=== PATIENT | male | born 1960 | race Caucasian/White ===

== ENCOUNTER 2016-06-03 08:45 | Inpatient (IN) | payer SELFPAY ==
[2016-06-03] MEDS ORDERED: SODIUM CHLORIDE 0.9% 10 ML FLUSH FLUSH PRN (09:08)
--- NOTE | 2016-06-03 09:18 | DIRPT ---
CLINICAL DATA: Altered mental status. EXAM: CT HEAD WITHOUT CONTRAST TECHNIQUE: Contiguous axial images were obtained from the base of the skull through the vertex without intravenous contrast. COMPARISON: None. FINDINGS: Bony calvarium appears intact. No mass effect or midline shift is noted. Ventricular size is within normal limits. There is no evidence of mass lesion, hemorrhage or acute infarction. IMPRESSION: Normal head CT. Electronically Signed By: Arthur Gerard Jr, M.D. On: 06/03/2016 09:15
[2016-06-03 09:19] LABS: AUTOMATED EOSINOPHIL 2.8 % (0-5); AUTOMATED LYMPH 23.2 % (17-44); AUTOMATED MONOCYTE 5.7 % (3-10); AUTOMATED NEUTROPHIL 67.3 % (45-76)
[2016-06-03] MEDS: NS 1,000 ML IV ONE ×2 (09:22→09:23)
[2016-06-03] MEDS ORDERED: ASPIRIN 300 MG SUPP PR ONE (09:24)
--- NOTE | 2016-06-03 09:28 | EDPRACDOC ---
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 EMS Treatment ALS IV Yes - General Information Chief Complaint: Generalized Weakness Stated Complaint: STROKE Time Seen by Provider: 06/03/16 08:48 Information Source: Patient Mode of Arrival:: Ambulance Home Medications: Home Medications No Home Medications 06/03/16 Allergies/Adverse Reactions: Allergies Allergy/AdvReac Type Severity Reaction Status Date / Time No Known Drug Allergies Allergy Unknown Verified 06/03/16 09:31 - History of Present Illness Exact Onset of Symptoms: Unknown Symptoms Started: Reports: Suddenly Symptoms: Reports: Other trouble talking Symptoms Description: Worsening Symptom Severity: Reports: Does not affect activitiy Associated signs and symptoms:: Reports: Headache HPI: PT'S SIGNIFICANT OTHER GIVES HX DUE TO PT'S DIFFICULTY WITH SPEECH. PT DEVELOPED A LEFT SIDED H/A LAST NIGHT. HE THEN DEVELOPED TROUBLE SPEAKING. PT CHECKED HIS BP AND IT WAS HIGH. PT HAS A HX OF HTN AND WAS SUPPOSED TO F/U WITH PCP, BUT NEVER DID. PT WENT TO SLEEP AND AWOKE THIS AM WITH WORSENING SPEECH. PT IS ABLE TO SWALLOW AND TO WALK. HE WAS ABLE TO GET DRESSED THIS AM. ED Past Medical History - Patient Medical History Neurological History: Reports: Other (TIA)Comment Only: Cerebrovascular Accident (TIA) Cardiac History: Reports: Hypertension Psychological History: Denies: Depression Surgical History: Reports: No Significant History - Social Medical History Smoking Status: Former smoker ETOH: None Substance Abuse: None Lives With: Significant Other Lives In: Home EDM Review of Systems - Review of Systems ROS Negative Except as Marked: Yes All systems reviewed and were negative except as marked Neurological: Headache, Speech Difficulty - Physical Exam Constitutional: Alert (Awake), No apparent distress Oriented to: Person Last recorded Vital Signs: Last Vital Signs Temp 98.6 F 06/03/16 09:00 Pulse 58 L 06/03/16 09:13 Resp 20 06/03/16 09:13 BP 181/96 H 06/03/16 09:13 Pulse Ox 100 06/03/16 09:13 Oxygen Pulse Oxygen Saturation 100 O2 Device Oxygen Flow Rate Fraction of Inspired Oxygen ( FIO2) - HEENT Head: Normal ( normocephalic) Eye Exam: Normal (PERRL, EOMI, Sclera white) Oropharynx: Normal (Pharynx:Moist without exudate,Gums-no swelling) ENT EAC: Normal TMJ: Normal Nose: No Symptoms Reported (septum midline) Neck: Normal (FROM, trachea at midline) - Respiratory/Cardiovascular Respiratory: Normal - CTA (BBS clear to auscultation without adventitious sounds ) Cardiovascular: Normal (RRR without murmur, gallop or rub) - GI Auscultation: Normal (NABS) Palpation: Normal (Soft,No rebound or guarding, non distended) Tenderness: Non tender Lombardo's Sign: Negative - Musculoskeletal Back: Normal (Non-Tender) Extremities: Normal (Normal tone, Pulses 2+ No cyanosis or edema, FROM) - Integumentary Skin: Normal, Warm, Dry Lymphatics: Normal (no adenopathy) - Neurologic Memory Impaired: Unable to Test Motor Function: Normal Cranial Nerve: Normal Cerebellar: Other ([place]ST[place]MUS) Mood Description: Normal Thought: Coherent Neurologic Comment: PT DISPLAYS WORD SALAD SPEECH AND APHASIA. PT IS ABLE TO ANSWER SOME QUESTIONS FLUENTLY LIKE HIS NAME, BUT SOME ANSWERS MOST QUESTIONS WITH NONSENSICAL WORDS. PT WILL FOLLOW COMMANDS. - Action Has patient received an Antithrombotic in the last 24hrs?: No Was an Antithrombotic given in the ED?: No Is patient a candidate for lytic therapy?: No Patient received TPA within 30 min of arrival?: No Reason IV Thrombolytics Contraindicated: Other *free text (TIME SINCE ONSET) - Results 06/03/16 09:05 06/03/16 09:05 WBC 8.0 xk/uL (3.8-10.8) 06/03/16 09:05 RBC 4.61 xM/uL (4.70-6.10) L 06/03/16 09:05 Hgb 14.7 g/dL (14.0-18.0) 06/03/16 09:05 Hct 42.2 % (42-52) 06/03/16 09:05 MCV 91 fL (80-94) 06/03/16 09:05 MCH 31.9 pg (27-32) 06/03/16 09:05 MCHC 34.9 g/dl (33-36) 06/03/16 09:05 RDW 12.6 % (11.5-14.5) 06/03/16 09:05 Plt Count 196 xk/uL (130-400) 06/03/16 09:05 MPV 8.0 fL (7.4-10.4) 06/03/16 09:05 Neut % (Auto) 67.3 % (45-76) 06/03/16 09:05 Lymph % (Auto) 23.2 % (17-44) 06/03/16 09:05 [place] % (Auto) 5.7 % (3-10) 06/03/16 09:05 Eos % (Auto) 2.8 % (0-5) 06/03/16 09:05 Baso % (Auto) 1.0 % (0-2) 06/03/16 09:05 Absolute Neuts (auto) 5.36 xk/uL (1.7-8.2) 06/03/16 09:05 Absolute Lymphs (auto) 1.84 xk/uL (0.65-4.75) 06/03/16 09:05 Lab Results 06/03/16 09:05 WBC 8.0 RBC 4.61 L Hgb 14.7 Hct 42.2 MCV 91 MCH 31.9 MCHC 34.9 RDW 12.6 Plt Count 196 MPV 8.0 Neut % (Auto) 67.3 Lymph % (Auto) 23.2 [place] % (Auto) 5.7 Eos % (Auto) 2.8 Baso % (Auto) 1.0 Absolute Neuts (auto) 5.36 Absolute Lymphs (auto) 1.84 - EKG EKG #1 EKG Time: 09:02 -: Yes EKG interpreted by me Rate: bpm: 57 [place]: Normal Rhythm: SB Block: None Hypertrophy: None ST: Normal - Diagnostic Imaging Head Image interpreted by: Radiologist Normal head CT. Chest Image interpreted by: Radiologist No active cardiopulmonary disease. - Departure Yes I personally saw and evaluated the patient. Disposition: Admit IP To This Hospital Condition: Fair Final Diagnosis: CVA (cerebral vascular accident) Instructions: Weakness (General) Education/Counseling Given To: Patient Education/Counseling Given Regarding: Diagnosis, Treatment Decision to Admit Time: 09:57 Decision to admit date: 06/03/16 Decision to admit: from ED - Physician Consulted Hospitalist Provider Called: Quang Gerard
[2016-06-03 09:38] LABS: BLOOD UREA NITROGEN 10 MG/DL (9-20); CALCIUM 9.1 MG/DL (8.4-10.2); CALCULATED OSMOLALITY 272 MOs/Kg (270-290); CHLORIDE 106 mEq/L (98-107); CPK TOTAL WITH POSSIBLE MB 124 IU/L (55-170); GLUCOSE 96 MG/DL (70-99); SODIUM LEVEL 142 mEq/L (137-146); TOTAL PROTEIN 7.1 G/DL (6.3-8.2)
--- NOTE | 2016-06-03 09:48 | DIRPT ---
CLINICAL DATA: Stroke EXAM: PORTABLE CHEST 1 VIEW COMPARISON: None. FINDINGS: Upper normal heart size. Lungs under aerated and grossly clear. No pneumothorax or pleural effusion. IMPRESSION: No active cardiopulmonary disease. Electronically Signed By: Alfredo Lomeli M.D. On: 06/03/2016 09:46
[2016-06-03 10:32] LABS: ALL NEG? NO; MDMA* NEG (NEGATIVE); METHAMPHETAMINES NEG (NEGATIVE); OXYCODONE NEG (NEGATIVE)
[2016-06-03 10:35] LABS: LEUKOCYTES/URINE NEG (NEGATIVE); NITRITE/URINE NEG (NEGATIVE); RBC/URINE 0-2 (0-2); URINE OCCULT BLOOD NEG (NEG/TRACE); WBC/URINE 0-2 (0-2)
[2016-06-03] MEDS ORDERED: GUAIFENESIN 200 MG/10 ML UDC PO PRN (10:55)
[2016-06-03] MEDS ORDERED: ONDANSETRON HCL 4 MG/2 ML VIAL IV PRN (10:55)
[2016-06-03] MEDS ORDERED: ACETAMINOPHEN 325 MG/TAB TABLET PO PRN (10:55)
[2016-06-03] MEDS ORDERED: MAGNESIUM HYDROXIDE 30 ML BOTTLE PO PRN (10:55)
[2016-06-03] MEDS ORDERED: ZOLPIDEM TARTRATE 5 MG TAB PO PRN (10:55)
[2016-06-03] MEDS ORDERED: Docusate Sodium 100 MG CAP PO PRN (10:55)
[2016-06-03] MEDS ORDERED: BENZONATATE 100 MG PERLES PO PRN (10:55)
--- NOTE | 2016-06-03 10:55 | HISTPHYS ---
- Chief Complaint stroke - History of Present Illness Mr. Parks is a 55-year-old white male who presents emergency room approximately 24 hours of slurred speech and word salad. Symptoms started yesterday afternoon and or significantly worse last evening. His family states that he would say words they were not together to form a coherent sentence. As symptoms persisted into this morning they elected to bring him to the emergency room for evaluation. Initial head CT and evaluation or negative. He still has difficulty with word finding but is speech is fluent in the majority of his interactions and statements are within normal limits. He says he was diagnosed with hypertension on a work trip to [place] approximately 4-5 months ago. He was supposed to follow up with a physician to manage blood pressure but he has yet to follow-up. He has a remote history of smoking and is an ex heavy alcohol user though he quit approximately 1 year ago. His symptoms are clearly consistent with acute stroke and he will be admitted to the hospital for further evaluation and management. He unfortunately is too far outside the clinical window to be a candidate for tPA. - Medical History Cardiac History: Reports: Hypertension Respiratory History: Reports: No Significant History GI/ History: Reports: No Significant History Musculoskeletal History: Reports: No Significant History Systemic History: Reports: No Significant History Neurological History: Reports: No Significant History, Other (TIA)Comment Only: Cerebrovascular Accident (TIA) Psychological History: Reports: No Significant History. Denies: Depression - Surgical History Reports: No Significant History - Medictions/Allergies Allergies No Known Drug Allergies Allergy (Verified 06/03/16 09:31) Unknown Current Medication List: Reviewed Home Medications No Home Medications 06/03/16 - Family History Reports: Hypertension - Social History Lives: Alone Smoking Status: Former smoker Social History: Reports: Alcohol Use (ex heavy alcohol use. quit 1 year ago) - Review of Systems Yes Review of systems cannot be obtained due to the patient's medical condition (Very limited due to stroke and speech difficulties with word-finding proble) - Physical Exam Constitutional: No apparent distress, Alert (Awake), Well nourished, Well appearing Oriented to: Person Exam: Last Vital Signs Temp 98.6 F 06/03/16 09:00 Pulse 58 L 06/03/16 10:19 Resp 20 06/03/16 10:19 BP 168/98 06/03/16 10:19 Pulse Ox 100 06/03/16 10:19 Intake & Output 06/02/16 06/03/16 06/03/16 23:59 07:59 15:59 Patient's weight 81.647 kg - HEENT Head: Normal ( normocephalic) Eye: Normal (PERRL, EOMI, Sclera white) Oropharynx: Normal (Pharynx:Moist without exudate,Gums-no swelling) ENT EAC: Normal TMJ: Normal Nose: No Symptoms Reported (septum midline) - Respiratory/Cardiovascular Respiratory: Normal - CTA (BBS clear to auscultation without adventitious sounds ) Cardiovascular: Normal - GI Auscultation: Normal (NABS) Palpation: Normal (Soft,No rebound or guarding, non distended) Tenderness: Non tender - Musculoskeletal Back: Normal (Non-Tender). negative: Abrasion Extremities: Normal (Normal tone, Pulses 2+ No cyanosis or edema, FROM), Femoral Pulse, Pedal Pulse. negative: Calf Tenderness, Edema, Pedal Edema - Integumentary Skin: Normal, Warm, Dry Lymphatics: Normal (no adenopathy). negative: Adenopathy - Neurologic Memory Impaired: Unable to Test Motor Function: Normal Cranial Nerve: Other (Speech fluent significant difficulties with word finding.) Mood Description: Normal Thought: Coherent Perception: Normal - Focused CV Perfusion Exam Vital Signs: Last Vital Signs Temp 98.6 F 06/03/16 09:00 Pulse 58 L 06/03/16 10:19 Resp 20 06/03/16 10:19 BP 168/98 06/03/16 10:19 Pulse Ox 100 06/03/16 10:19 - Lab Results Laboratory Results - last 24 hr 06/03/16 06/03/16 06/03/16 09:05 09:05 09:05 WBC 8.0 RBC 4.61 L Hgb 14.7 Hct 42.2 MCV 91 MCH 31.9 MCHC 34.9 RDW 12.6 Plt Count 196 MPV 8.0 Neut % (Auto) 67.3 Lymph % (Auto) 23.2 [place] % (Auto) 5.7 Eos % (Auto) 2.8 Baso % (Auto) 1.0 Absolute Neuts (auto) 5.36 Absolute Lymphs (auto) 1.84 APTT 25.7 Sodium 142 Potassium 4.1 Chloride 106 Carbon Dioxide 27 Anion Gap 13 BUN 10 Creatinine 0.70 Estimated GFR (MDRD) > 60 Glucose 96 Calculated Osmolality 272 Calcium 9.1 Total Bilirubin 0.8 AST 40 ALT 38 Alkaline Phosphatase 73 Creatine Kinase 124 Troponin I < 0.01 Total Protein 7.1 Albumin 4.2 Urine Color Urine Clarity Urine pH Ur Specific [place] Urine Protein Urine Glucose (UA) Urine Ketones Urine Occult Blood Urine Nitrite Urine Bilirubin Urine Urobilinogen Ur Leukocyte Esterase Urine RBC Urine WBC Urine Mucus Urine Opiates Screen Ur Oxycodone Screen Urine Methadone Screen Ur Barbiturates Screen Ur Tricyclics Screen Ur Phencyclidine Scrn Ur Amphetamines Screen U Methamphetamines Scrn Urine MDMA Screen U Benzodiazepines Scrn Urine Cocaine Screen Ur THC Screen 06/03/16 06/03/16 10:05 10:30 WBC RBC Hgb Hct MCV MCH MCHC RDW Plt Count MPV Neut % (Auto) Lymph % (Auto) [place] % (Auto) Eos % (Auto) Baso % (Auto) Absolute Neuts (auto) Absolute Lymphs (auto) APTT Sodium Potassium Chloride Carbon Dioxide Anion Gap BUN Creatinine Estimated GFR (MDRD) Glucose Calculated Osmolality Calcium Total Bilirubin AST ALT Alkaline Phosphatase Creatine Kinase Troponin I Total Protein Albumin Urine Color Yellow Urine Clarity Clear Urine pH 8.0 Ur Specific [place] 1.010 Urine Protein Neg Urine Glucose (UA) Neg Urine Ketones Neg Urine Occult Blood Neg Urine Nitrite Neg Urine Bilirubin Neg Urine Urobilinogen <2.0 Ur Leukocyte Esterase Neg Urine RBC 0-2 Urine WBC 0-2 Urine Mucus Occ Urine Opiates Screen Neg Ur Oxycodone Screen Neg Urine Methadone Screen Neg Ur Barbiturates Screen Neg Ur Tricyclics Screen Neg Ur Phencyclidine Scrn Neg Ur Amphetamines Screen Neg U Methamphetamines Scrn Neg Urine MDMA Screen Neg U Benzodiazepines Scrn Neg Urine Cocaine Screen Neg Ur THC Screen *positive* H - Assessment (1) CVA (cerebral vascular accident) I63.9 - CEREBRAL INFARCTION, UNSPECIFIED Acute Present on Admission: Yes Qualifiers: CVA mechanism: thrombosis Precerebral and cerebral artery: middle cerebral artery Laterality of affected vessel: left Qualified Code(s): I63.312 - Cerebral infarction due to thrombosis of left middle cerebral artery Clearly had a stroke affecting his speech center. Admit to the hospital. Start him on aspirin and Lipitor. Will allow for permissive hypertension. Check MRI of brain. Carotid Dopplers and echo have been ordered. Speech therapy, physical therapy, occupational therapy evaluations. (2) Uncontrolled hypertension I10 - ESSENTIAL (PRIMARY) HYPERTENSION Acute Present on Admission: Yes Will allow permissive hypertension for now. Titrate medications as an outpatient when stable. (3) Marijuana use F12.10 - CANNABIS ABUSE, UNCOMPLICATED Acute Present on Admission: Yes Drug screen positive for marijuana. Will address with patient when more stable. Case Care Discussed with: Patient, Family, Nursing Staff, Physical Therapy, Resource Management, Respiratory Therapy, Speech Therapy, Operation Shift Supervisor
--- NOTE | 2016-06-03 12:57 | DIRPT ---
CLINICAL DATA: Generalized weakness, speech difficulty and hypertension. EXAM: BILATERAL CAROTID DUPLEX ULTRASOUND TECHNIQUE: Back scale imaging, color Doppler and duplex ultrasound were performed of bilateral carotid and vertebral arteries in the neck. COMPARISON: None. FINDINGS: Criteria: Quantification of carotid stenosis is based on velocity parameters that correlate the residual internal carotid diameter with NASCET-based stenosis levels, using the diameter of the distal internal carotid lumen as the denominator for stenosis measurement. The following velocity measurements were obtained: RIGHT ICA: 69/25 cm/sec CCA: 71/17 cm/sec SYSTOLIC ICA/CCA RATIO: 1.0 DIASTOLIC ICA/CCA RATIO: 1.5 ECA: 81 cm/sec LEFT ICA: 61/15 cm/sec CCA: 80/16 cm/sec SYSTOLIC ICA/CCA RATIO: 1.5 DIASTOLIC ICA/CCA RATIO: 1.0 ECA: 133 cm/sec RIGHT CAROTID ARTERY: The common carotid artery is tortuous. Intimal thickening present at the level of the distal common carotid artery and carotid bulb without significant focal plaque. Velocities and waveforms at the level of the ICA are normal and there is no evidence of right ICA stenosis. RIGHT VERTEBRAL ARTERY: Antegrade flow with normal waveform and velocity. LEFT CAROTID ARTERY: Intimal thickening present. There is a mild amount of partially calcified plaque at the level of the distal bulb that extends just up to the origin of the left ICA. ICA velocities and waveforms are normal and estimated left ICA stenosis is less than 50%. LEFT VERTEBRAL ARTERY: Antegrade flow with normal waveform and velocity. IMPRESSION: No significant carotid stenosis identified. No evidence of right ICA stenosis. Mild plaque at the level of the left distal bulb and proximal ICA with estimated left ICA stenosis of less than 50%. Electronically Signed By: Toñito Miller M.D. On: 06/03/2016 12:54
[2016-06-03] MEDS ORDERED: Vaccine Screening Complete SCH (14:00)
--- NOTE | 2016-06-03 15:38 | DIRPT ---
CLINICAL DATA: Confusion. LEFT-sided head pain. Speech difficulty for 2 days. EXAM: MRI HEAD WITHOUT AND WITH CONTRAST TECHNIQUE: Multiplanar, multiecho pulse sequences of the brain and surrounding structures were obtained without and with intravenous contrast. CONTRAST: MultiHance 20 mL. COMPARISON: CT head 06/03/2016. Carotid Dopplers 06/03/2016. FINDINGS: Multifocal areas of acute infarction, most subcentimeter in size, affect the LEFT hemisphere cortex and subcortical white matter, involving the temporal, parietal, frontal, and occipital lobes, widely . No involvement of the brainstem, posterior circulation, or RIGHT hemisphere. Pattern of infarcts suggests a LEFT ICA or MCA embolic source. Watershed ischemia and/or cardiac source is less favored. Within limits for detection on MR, no acute hemorrhage is associated. No mass lesion, hydrocephalus, or extra-axial fluid. Premature for age cerebral and cerebellar atrophy. Mild subcortical and periventricular T2 and FLAIR hyperintensities, likely chronic microvascular ischemic change. Flow voids are maintained throughout the carotid, basilar, and vertebral arteries. There are no areas of chronic hemorrhage. Assessment of the LEFT proximal M1 MCA for a symptomatic stenosis is not possible on routine MR imaging. Consider MRA intracranial for further evaluation. Normal pituitary and cerebellar tonsils. No pineal lesion of significance. No osseous findings. Post infusion, no abnormal enhancement of brain or meninges. Extracranial soft tissues unremarkable. Mild chronic sinus disease. Negative orbits. Compared with prior CT, the infarcts are not visible. IMPRESSION: Multifocal areas of acute nonhemorrhagic acute infarction affecting the LEFT MCA territory. Premature cerebral and cerebellar atrophy. Consider intracranial MRA to further assess the status of the LEFT MCA given the pattern infarction. Electronically Signed By: César Downs M.D. On: 06/03/2016 15:35
[2016-06-03] MEDS: ATORVASTATIN 40 MG TAB PO SCH (17:23)
[2016-06-03] MEDS: ENOXAPARIN 40 MG/0.4 ML PFS SQ SCH (17:23)
[2016-06-04] MEDS ORDERED: PNEUMOCOCCAL 0.5 ML VIAL IM ONE (08:00)
[2016-06-04] MEDS ORDERED: FLU VACCINE (Afluria) 0.5 ML DOSE IM ONE (08:00)
--- NOTE | 2016-06-04 10:29 | GENMEDPROG ---
Chief Complaint: MRI confirmed stroke. Speech is improved today. Still some mild difficulty with word finding but strength of speech and fluency is much improved Notes Reviewed: Yes Events from last night noted and discussed with Clinical Staff Current Medication List: Reviewed Currently: Denies: Cough, Wheezing, [place], Nausea and Vomiting, Abdominal Pain DVT Prophylaxis: Yes - Physical Examination Vital Signs and I&O: Last Vital Signs Temp 98.6 F 06/04/16 07:48 Pulse 74 06/04/16 09:55 Resp 20 06/04/16 07:48 BP 180/88 H 06/04/16 07:48 Pulse Ox 95 06/04/16 07:48 Oxygen Pulse Oxygen Saturation 95 O2 Device Room Air Oxygen Flow Rate Fraction of Inspired Oxygen ( FIO2) Intake & Output 06/01/16 06/02/16 06/03/16 06/04/16 23:59 23:59 23:59 23:59 Intake Total 1797 Output Total 800 Balance 997 Patient's weight 98.43 kg General: Alert, Oriented x3, Cooperative, No acute distress, Well appearing, Well nourished HEENT: Normal, PERRLA, EOMI, Anicteric Sclera Neck: Non-tender, Full range of motion, Normal Trachea alignment, Normal inspection. negative: JVD Lymphatics: Normal (no adenopathy). negative: Adenopathy Respiratory: Normal - CTA (BBS clear to auscultation without adventitious sounds ) Cardiovascular: Regular rate and rhythm, No Gallops,Rubs/Murmurs GI: Normal bowel sounds, Soft, Non tender, No hepatospenomegaly Extremities/Musculoskeletal: Normal pulses. negative: Tenderness, Swelling, Edema Skin: Warm,Dry and Intact, No significant lesion. negative: No rashes, No breakdown Neurological: Normal Steady Gait, Normal speech (Minimal word-finding difficulty ), Strength at 5/5 X4 ext, Normal tone, Cranial nerves 3-12 NL, Reflexes 2+ Psych/Mental Status: Appropriate, Normal Affect, Cooperative Lab/DI/Studies Reviewed: Laboratory Results - last 24 hr 06/03/16 06/03/16 06/03/16 10:05 10:30 13:48 POC Capillary Glucose Troponin I < 0.01 Urine Color Yellow Urine Clarity Clear Urine pH 8.0 Ur Specific [place] 1.010 Urine Protein Neg Urine Glucose (UA) Neg Urine Ketones Neg Urine Occult Blood Neg Urine Nitrite Neg Urine Bilirubin Neg Urine Urobilinogen <2.0 Ur Leukocyte Esterase Neg Urine RBC 0-2 Urine WBC 0-2 Urine Mucus Occ Urine Opiates Screen Neg Ur Oxycodone Screen Neg Urine Methadone Screen Neg Ur Barbiturates Screen Neg Ur Tricyclics Screen Neg Ur Phencyclidine Scrn Neg Ur Amphetamines Screen Neg U Methamphetamines Scrn Neg Urine MDMA Screen Neg U Benzodiazepines Scrn Neg Urine Cocaine Screen Neg Ur THC Screen *positive* H 06/04/16 05:29 POC Capillary Glucose 99 Troponin I Urine Color Urine Clarity Urine pH Ur Specific [place] Urine Protein Urine Glucose (UA) Urine Ketones Urine Occult Blood Urine Nitrite Urine Bilirubin Urine Urobilinogen Ur Leukocyte Esterase Urine RBC Urine WBC Urine Mucus Urine Opiates Screen Ur Oxycodone Screen Urine Methadone Screen Ur Barbiturates Screen Ur Tricyclics Screen Ur Phencyclidine Scrn Ur Amphetamines Screen U Methamphetamines Scrn Urine MDMA Screen U Benzodiazepines Scrn Urine Cocaine Screen Ur THC Screen - Assessment (1) CVA (cerebral vascular accident) Acute I63.9 - CEREBRAL INFARCTION, UNSPECIFIED Qualifiers: CVA mechanism: thrombosis Precerebral and cerebral artery: middle cerebral artery Laterality of affected vessel: left Qualified Code(s): I63.312 - Cerebral infarction due to thrombosis of left middle cerebral artery Comment/Plan: MRI confirmed left MCA stroke. Carotids are negative. Echo pending. Continue speech therapy physical therapy and occupational therapy. Continue aspirin and Lipitor. Given persistent elevation and blood pressure will go ahead and start BALBINA-inhibitor. (2) Uncontrolled hypertension Acute I10 - ESSENTIAL (PRIMARY) HYPERTENSION Comment/Plan: Adding BALBINA- inhibitor. (3) Marijuana use Acute F12.10 - CANNABIS ABUSE, UNCOMPLICATED Comment/Plan: Drug screen positive for marijuana. Stressed cessation (4) Hyperlipidemia Acute E78.5 - HYPERLIPIDEMIA, UNSPECIFIED Qualifiers: Hyperlipidemia type: pure hypercholesterolemia Qualified Code(s): E78.00 - Pure hypercholesterolemia, unspecified; E78.0 - Pure hypercholesterolemia Comment/Plan: Started Lipitor Case Care Discussed with: Patient, Family, Nursing Staff, Resource Management, Speech Therapy
[2016-06-04] MEDS: LISINOPRIL 10 MG TAB PO SCH (13:04)
--- NOTE | 2016-06-04 16:20 | CAPUECHO ---
INDICATION: ISCHEMIC STROKE EVAL FORAMEN OVALE HEIGHT: 165.1 cm (5 ft 5.0 in) WEIGHT: 81.7 kg (180.0 lbs) BP: 162/60 BSA: 1.917128 m MEASUREMENTS 2D RVIDd: 3.1 cm IVSd: 1.2* cm LVIDd: 5.7* cm LVPWd: 1.2* cm LVIDs: 3.9* cm EF(Teich): 58.76 % EF Biplane: 52.62 % LAESV MOD A4C: 38.9 ml LAESV MOD A2C: 51.9 ml LAESV Index (A-L): 26.44 ml/m M-MODE IVSd: 1.0 cm LVIDd: 6.1 cm Ao Diam: 3.7 cm LA Diam: 3.0 cm DOPPLER MV E Maynor: 0.68 m/s MV A [place]: 0.89 m/s MV PHT: 59.69 ms MVA By PHT: 3.69 cm LVOT Vmax: 0.96 m/s AV Vmax: 1.34 m/s FINDINGS ------- Procedure:2D images, m-mode, color and spectral Doppler were obtained and reviewed. ECG rhythm:Sinus rhythm. Study quality:This was a technically adequate study. Left Ventricle:There is mild concentric left ventricular hypertrophy with with an EF between 60 - 6 5 %. , no segmental abnormality. The diastolic filling pattern indicates impaired relaxation. Right Ventricle:The right ventricle is normal in size and function. Left Atrium:The left atrium is normal in size. Right Atrium:The right atrium is normal in size and function. Septum appears normal, intact by Dop pler, and negative "bubble study" ASD/VSD:Interatrial and interventricular septum intact. Negative bubble study. Aortic Valve:The aortic valve is trileaflet, with nodular thickening of right coronary cusp, good m obility, mild regurgitation by Doppler. Mitral Valve:Normal appearing mitral valve. There is trace mitral regurgitation. Tricuspid Valve:The tricuspid valve appears structurally normal. Trace tricuspid regurgitation pre sent. Pulmonic Valve:The pulmonic valve is normal. There is no pulmonic regurgitation present. Aorta:The aortic root, ascending aorta and aortic arch appear normal in dimension. An echodensity on the lesser curvature of the arch is probably an artifact or pleural relection, but thrombus or wall hematoma cannot be excluded. IVC:Normal inferior vena cava with normal inspiratory collapse. Pericardium:There is no pericardial effusion. CONCLUSIONS 1. mild concentric left ventricular hypertrophy with normal systolic function 2. aortic sclerosis with mild regurgitation - no randomly mobile mass identified. 3. normal right heart size/functio n - negative "bubble study" 4. echodensity in aortic arch probably artifactual, but MRI (or at least CT) of arch is suggested, especially if mechanism for neuro event has not been estab lished Electronically Signed By: Yoshi Junior MD-- Electronically Signed On: 16:11:01
[2016-06-04] MEDS ORDERED: Pharmacy Review for Metformin - IV Contrast Given SCH (17:00)
[2016-06-04] MEDS: ATORVASTATIN 40 MG TAB PO SCH (17:02)
[2016-06-04] MEDS: ENOXAPARIN 40 MG/0.4 ML PFS SQ SCH (17:02)
--- NOTE | 2016-06-04 19:35 | DIRPT ---
CLINICAL DATA: Multi focal acute infarct in the left MCA territory. Evaluate for embolic source. EXAM: CT ANGIOGRAPHY CHEST WITH CONTRAST TECHNIQUE: Multidetector CT imaging of the chest was performed using the standard protocol during bolus administration of intravenous contrast. Multiplanar CT image reconstructions and MIPs were obtained to evaluate the vascular anatomy. CONTRAST: 150 cc Isovue 370 COMPARISON: None. FINDINGS: Mediastinum / Lymph Nodes: There is no axillary lymphadenopathy. No mediastinal lymphadenopathy. There is no hilar lymphadenopathy. The heart size is normal. No pericardial effusion. The esophagus has normal imaging features. No aneurysm of the ascending aorta. No appreciable mural thrombus in the thoracic aorta. No atherosclerotic calcification in the thoracic aorta. Lungs / Pleura: Lungs are clear bilaterally. Upper Abdomen: 8 mm hypodensity in the anterior right liver is likely a cyst. No adrenal nodule or mass. MSK / Soft Tissues: Bone windows reveal no worrisome lytic or sclerotic osseous lesions. Review of the MIP images confirms the above findings. IMPRESSION: No findings in the thoracic aorta to suggest an embolic source for the patient's multifocal left-sided MCA territory infarct. Electronically Signed By: Gil Spencer M.D. On: 06/04/2016 19:32
--- NOTE | 2016-06-05 06:37 | DIRPT ---
CLINICAL DATA: Code stroke. Worsening confusion and difficulty with speech, acute onset. Slight headache. Initial encounter. EXAM: CT HEAD WITHOUT CONTRAST TECHNIQUE: Contiguous axial images were obtained from the base of the skull through the vertex without intravenous contrast. COMPARISON: CT of the head and MRI of the brain performed 06/03/2016 FINDINGS: Evolving small subacute infarcts are again noted at the left parietal lobe. No new infarcts are seen. There is no evidence of hemorrhagic transformation or mass lesion. The posterior fossa, including the cerebellum, brainstem and fourth ventricle, is within normal limits. The third and lateral ventricles, and basal ganglia are unremarkable in appearance. No midline shift is seen. There is no evidence of fracture; visualized osseous structures are unremarkable in appearance. The visualized portions of the orbits are within normal limits. The paranasal sinuses and mastoid air cells are well-aerated. No significant soft tissue abnormalities are seen. IMPRESSION: 1. No new infarct seen. 2. Evolving small subacute infarcts again noted at the left parietal lobe, without evidence of hemorrhagic transformation. These results were called by telephone at the time of interpretation on 06/05/2016 at 6:[address] SAMUEL ESCALERA MD, who verbally acknowledged these results. Electronically Signed By: Migue Mirza M.D. On: 06/05/2016 06:34
[2016-06-05 09:19] VITALS: TEMP 97.7
[2016-06-05] MEDS: LISINOPRIL 10 MG TAB PO SCH (09:23)
--- NOTE | 2016-06-05 15:37 | GENMEDPROG ---
Chief Complaint: Was doing well but developed recurrent symptoms overnight. Slightly better this morning but still with some difficulties with word finding. Repeat head CT shows evolution of stroke but no acute stroke Notes Reviewed: Yes Events from last night noted and discussed with Clinical Staff Current Medication List: Reviewed Currently: Denies: Cough, Wheezing, CORNEJO, Nausea and Vomiting, Abdominal Pain DVT Prophylaxis: Yes - Physical Examination Vital Signs and I&O: Last Vital Signs Temp 97.9 F 06/05/16 11:49 Pulse 69 06/05/16 14:00 Resp 18 06/05/16 11:49 BP 137/82 06/05/16 11:49 Pulse Ox 96 06/05/16 11:49 Oxygen Pulse Oxygen Saturation 96 O2 Device Room Air Oxygen Flow Rate Fraction of Inspired Oxygen ( FIO2) Intake & Output 06/02/16 06/03/16 06/04/16 06/05/16 23:59 23:59 23:59 23:59 Intake Total 1797 600 360 Output Total 800 Balance 997 600 360 Patient's weight 98.43 kg 98.067 kg General: Alert, Oriented x3, Cooperative, No acute distress, Well appearing, Well nourished HEENT: Normal, PERRLA, EOMI, Anicteric Sclera Neck: Non-tender, Full range of motion, Normal Trachea alignment, Normal inspection. negative: JVD Lymphatics: Normal (no adenopathy). negative: Adenopathy Respiratory: Normal - CTA (BBS clear to auscultation without adventitious sounds ) Cardiovascular: Regular rate and rhythm, No Gallops,Rubs/Murmurs GI: Normal bowel sounds, Soft, Non tender, No hepatospenomegaly Extremities/Musculoskeletal: Normal pulses. negative: Tenderness, Swelling, Edema Skin: Warm,Dry and Intact, No significant lesion. negative: No rashes, No breakdown Neurological: Normal Steady Gait, Strength at 5/5 X4 ext, Normal tone, Cranial nerves 3-12 NL, Reflexes 2+. negative: Normal speech (Fluent but problems with word finding) Psych/Mental Status: Appropriate, Normal Affect, Cooperative Lab/DI/Studies Reviewed: Laboratory Results - last 24 hr 06/04/16 06/04/16 06/05/16 16:51 21:14 06:04 POC Capillary Glucose 119 H 98 105 H 06/05/16 11:41 POC Capillary Glucose 88 - Assessment (1) CVA (cerebral vascular accident) Acute I63.9 - CEREBRAL INFARCTION, UNSPECIFIED Qualifiers: CVA mechanism: thrombosis Precerebral and cerebral artery: middle cerebral artery Laterality of affected vessel: left Qualified Code(s): I63.312 - Cerebral infarction due to thrombosis of left middle cerebral artery Comment/Plan: MRI with left MCA stroke. Recurrent symptoms this morning. Echo negative, carotid Dopplers negative, CT of chest and aortic arch are negative. Continue aspirin and Lipitor. Started BALBINA-inhibitor. Given recurrent symptoms this morning will continue to monitor another 24 hours. (2) Uncontrolled hypertension Acute I10 - ESSENTIAL (PRIMARY) HYPERTENSION Comment/Plan: Added BALBINA- inhibitor. Blood pressures are much improved. (3) Marijuana use Acute F12.10 - CANNABIS ABUSE, UNCOMPLICATED Comment/Plan: Drug screen positive for marijuana. Stressed cessation (4) Hyperlipidemia Acute E78.5 - HYPERLIPIDEMIA, UNSPECIFIED Qualifiers: Hyperlipidemia type: pure hypercholesterolemia Qualified Code(s): E78.00 - Pure hypercholesterolemia, unspecified; E78.0 - Pure hypercholesterolemia Comment/Plan: Started Lipitor Case Care Discussed with: Patient, Family, Nursing Staff, Physical Therapy, Resource Management, Respiratory Therapy, Electrical Sign Servicer
[2016-06-05] MEDS: ATORVASTATIN 40 MG TAB PO SCH (18:02)
[2016-06-05] MEDS: ENOXAPARIN 40 MG/0.4 ML PFS SQ SCH (18:03)
[2016-06-06 05:43] VITALS: BMI 27.6
[2016-06-06 07:52] VITALS: BP 145/67; TEMP 98
--- NOTE | 2016-06-06 08:01 | PCM.DCS92 ---
- Final/Secondary Discharge Diagnosis (1) CVA (cerebral vascular accident) Acute I63.9 - CEREBRAL INFARCTION, UNSPECIFIED Present on Admission: Yes thrombosis middle cerebral artery left I63.312 - Cerebral infarction due to thrombosis of left middle cerebral artery Comment: MRI with left MCA stroke. Better today. Speech improving Echo negative, carotid Dopplers negative, CT of chest and aortic arch are negative. Continue aspirin and Lipitor. Started BALBINA-inhibitor. (2) Uncontrolled hypertension Acute I10 - ESSENTIAL (PRIMARY) HYPERTENSION Present on Admission: Yes Comment: Added BALBINA-inhibitor. Blood pressures are much improved. (3) Marijuana use Acute F12.10 - CANNABIS ABUSE, UNCOMPLICATED Present on Admission: Yes Comment: Drug screen positive for marijuana. Stressed cessation (4) Hyperlipidemia Acute E78.5 - HYPERLIPIDEMIA, UNSPECIFIED pure hypercholesterolemia E78.00 - Pure hypercholesterolemia, unspecified; E78.0 - Pure hypercholesterolemia Comment: Started Lipitor Discharge Disposition: Home (outpatient speech therapy) Discharge Condition: Improved Cognitive Discharge Status: Unimpaired Fuctional Discharge Status: Independent Physician Follow up/Referrals: Billie Jacobs NP [Primary Care Provider] - 06/13/16 9:00 am New Prescriptions: Aspirin [Mick Aspirin] 325 mg PO DAILY #30 tablet Atorvastatin Calcium [Lipitor] 40 mg PO DAILY@1800 #30 tablet Lisinopril [Zestril] 10 mg PO DAILY #30 tablet O2 Device: Room Air Diet at Discharge: Heart Healthy Activity: As Tolerated Call Office For: Worsening Symptoms - DC Summary Notes Hospital Course Note:: Discharge summary on patient named PAULA PARKS JR admitted to [facility] on 06/03/16 by Quang Gerard MD. Date of discharge is []. Mr. Parks is a pleasant 55-year-old white male previously healthy currently on no medications. He had been diagnosed recently with hypertension during a work related trip several months back. He has yet to follow up with his primary physician. He presented to the emergency room with 24-36 hours of slurred speech, word salad, and difficulty with word finding. Initial head CT was negative but given his symptoms he was admitted to the hospital. He was started on aspirin, Lipitor, and lisinopril. Follow-up MRI confirmed left MCA territory strokes. There was some concern for possible embolic phenomenon. He underwent carotid Dopplers, 2D echo, and CT angio over his thoracic aortic arch. All of these were negative for any embolic source. At this point would continue on aspirin daily and not fully anticoagulate. Continue other medications. He has been working with speech therapy and has had significant improvement. We will make arrangements for him to follow up with them as an outpatient. On day of discharge she has been up ambulating in halls has reached maximal hospital benefit and is stable for discharge home. Total Time: 45 minutes - Physical Exam Vital Signs: Last Vital Signs Temp 98 F 06/06/16 07:51 Pulse 59 L 06/06/16 07:51 Resp 19 06/06/16 07:51 BP 145/67 06/06/16 07:51 Pulse Ox 97 06/06/16 07:51 Oxygen Pulse Oxygen Saturation 97 O2 Device Room Air Oxygen Flow Rate Fraction of Inspired Oxygen ( FIO2) Constitutional: No apparent distress, Alert (Awake), Well nourished, Well appearing Oriented to: Time, Person, Place - HEENT Head: Normal ( normocephalic) Eye: Normal (PERRL, EOMI, Sclera white) Oropharynx: Normal (Pharynx:Moist without exudate,Gums-no swelling) ENT EAC: Normal TMJ: Normal Nose: No Symptoms Reported (septum midline) - Respiratory/Cardiovascular Respiratory: Normal - CTA (BBS clear to auscultation without adventitious sounds ) Cardiovascular: Normal - GI Auscultation: Normal (NABS) Palpation: Normal (Soft,No rebound or guarding, non distended) Tenderness: Non tender - Musculoskeletal Back: Normal (Non-Tender). negative: Abrasion Extremities: Normal (Normal tone, Pulses 2+ No cyanosis or edema, FROM), Femoral Pulse, Pedal Pulse. negative: Calf Tenderness, Edema, Pedal Edema - Integumentary Skin: Warm, Dry Lymphatics: Normal (no adenopathy). negative: Adenopathy - Neurologic Memory Impaired: Normal, Unable to Test Motor Function: Normal Cranial Nerve: Other (speech fluent with mild word finding difficulty. overall much better) Cerebellar: Normal Mood Description: Normal Thought: Coherent Perception: Normal
[2016-06-06] MEDS: LISINOPRIL 10 MG TAB PO SCH (08:40)
[2016-06-06 08:47] VITALS: PULSE 78
== END 2016-06-06 11:00 | disposition home or self-care (01) | DRG 66 ==
LOC: ED 08:45 → PCU 10:55
PROVIDERS: ADMIT Hospitalist; ATTEND Hospitalist
DX: I63.312 Cerebral infarction due to thrombosis of left middle cerebral artery (principal); I10 Essential (primary) hypertension; F12.10 Cannabis abuse, uncomplicated; E78.00 Pure hypercholesterolemia, unspecified; Z86.73 Personal history of transient ischemic attack (TIA), and cerebral infarction without residual deficits
CPT/HCPCS: 36415; 70450; 70553; 71010; 71275; 80053; 80301; 81001; 82550; 82962; 84484; 85025; 85730; 90656; 90732; 93005; 93306; 93880; 96360; 96361; 96372; 97162; 99285; A9577; A9698; J1650; J3490

== ENCOUNTER 2016-06-07 12:36 | Inpatient (IN) | payer SELFPAY ==
[~2016-06-07 12:36] MED LIST: Aspirin (Orange Enteric Coated) 325 mg tab PO SCH
--- NOTE | 2016-06-07 13:07 | DIRPT ---
CLINICAL DATA: Slurred speech. EXAM: CT HEAD WITHOUT CONTRAST TECHNIQUE: Contiguous axial images were obtained from the base of the skull through the vertex without intravenous contrast. COMPARISON: CT scan of June 05, 2016. FINDINGS: Bony calvarium appears intact. Multiple low densities are noted in the left periventricular white matter, and left posterior parietal cortex which it increased compared to prior exam, consistent with multiple acute infarctions. This is concerning for embolic phenomenon. Minimal chronic ischemic white matter disease is noted. No hemorrhage is noted. No definite mass lesion is noted. No midline shift is noted. Ventricular size is within normal limits. IMPRESSION: Multiple evolving acute infarctions are seen involving the left periventricular white matter and posterior parietal cortex. This is concerning for possible embolic phenomenon. No hemorrhage is noted at this point. Critical Value/emergent results were called by telephone at the time of interpretation on 06/07/2016 at 1:[address] JEMIMA JOHNSON DO, who verbally acknowledged these results. Electronically Signed By: Arthur Gerard Jr, M.D. On: 06/07/2016 13:04
[2016-06-07] MEDS ORDERED: CLOPIDOGREL 75 MG TAB PO ONE (13:29)
--- NOTE | 2016-06-07 13:31 | DIRPT ---
CLINICAL DATA: Chest pain. EXAM: PORTABLE CHEST 1 VIEW COMPARISON: June 03, 2016. FINDINGS: The heart size and mediastinal contours are within normal limits. Both lungs are clear. No pneumothorax or pleural effusion is noted. The visualized skeletal structures are unremarkable. IMPRESSION: No acute cardiopulmonary abnormality seen. Electronically Signed By: Arthur Gerard Jr, M.D. On: 06/07/2016 13:29
--- NOTE | 2016-06-07 13:34 | EDPRACDOC ---
- General Information Chief Complaint: Neuro Symptoms/Deficits Stated Complaint: WEAKNESS Time Seen by Provider: 06/07/16 13:02 Home Medications: Home Medications Aspirin [Mick Aspirin] 325 mg PO DAILY #30 tablet 06/06/16 Atorvastatin Calcium [Lipitor] 40 mg PO DAILY@1800 #30 tablet 06/06/16 Lisinopril [Zestril] 10 mg PO DAILY #30 tablet 06/06/16 Allergies/Adverse Reactions: Allergies Allergy/AdvReac Type Severity Reaction Status Date / Time No Known Drug Allergies Allergy Unknown Verified 06/07/16 13:09 - History of Present Illness Exact Onset of Symptoms: Unknown Date Symptoms Started: 06/07/16 Time Symptoms Started: 12:00 (BETWEEN 11:30-12:30) Symptoms Started: Reports: Suddenly Symptoms: Reports: Other motor weakness, Facial droop, Other trouble talking Symptoms Description: Worsening Symptom Severity: Reports: Unable to performs ADL's Weakness: Left: Arm, Face Relevant History of: Reports: CVA HPI: PATIENT PRESENTS AFTER LEAVING HOSPITAL YESTERDAY FOR CVA. PATIENT WAS FOUND TO HAVE NUMEROUS INFARCTIONS IN THE BRAIN LEFT MCA WITH SYMPTOMS INCLUDING WORD FINDING. PATIENT ARRIVES WITH STATING THAT BETWEEN 11:30-12:30 PATIENT SUDDENLY BECAME WORSE. TOOK HIS ASPIRIN PRESCRIBED 325MG THIS AM. NOTES NEW RIGHT FACIAL DROOP, RIGHT HAND WEAKNESS AND RIGHT ARM NUMBNESS. PATIENT NOW UNABLE TO GET ANY WORDS OUT. ED Past Medical History - History Reviewed Yes Nurses notes reviewed and agree except as marked Travel Outside of [place] in the Last 3 Months?: No - Patient Medical History Neurological History: Denies: Seizures. Comment Only: Cerebrovascular Accident (TIA) Cardiac History: Reports: Hypertension. Denies: Heart Attack, Pacemaker Respiratory History: Denies: Asthma, Pneumonia, Pulmonary Embolism GI/ History: Denies: Urinary Tract Infection Musculoskeletal History: Reports: Arthritis Psychological History: Denies: Depression, Anxiety, Substance Use Disorder Surgical History: Denies: Cholecystectomy - Family Medical History Reports: Hypertension, Cancer (mother, brothers, sister). Denies: Diabetes - Social Medical History Smoking Status: Former smoker Social History: Denies: Substance Use Disorder ETOH: None Substance Abuse: None Lives With: Family Lives In: Home EDM Review of Systems - Review of Systems ROS Negative Except as Marked: Yes All systems reviewed and were negative except as marked Constitutional: No Symptoms Reported. negative: Fever, Chills, Weakness, Fatigue, Loss of Appetite Eyes: No Symptoms Reported. negative: Redness, Blurred Vision, Double Vision, Discharge, Pain, Light Sensitive, Photophobia Ears: No Symptoms Reported. negative: Pain, Hearing Loss, Drainage, Ear Pulling Throat: No Symptoms Reported. negative: Pain, Swelling Nose: No Symptoms Reported. negative: Congestion, Bleeding, Discharge, Injection, Swelling, Deformity, Ecchymosis, Tender, Abrasion, Laceration Mouth: No Symptoms Reported. negative: Pain, Drooling Respiratory: No Symptoms Reported. negative: Cough, Brassy Cough, Barky Cough, Shortness of Breath, Wheezing, Hemoptysis Cardiovascular: No Symptoms Reported. negative: Chest Pain, Palpitations, Syncope, Edema, Orthopnea, PND, Skin Mottling, Cyanosis Gastrointestinal: No Symptoms Reported. negative: Pain, Constipation, Nausea, Vomiting, Diarrhea, Melena, Formula Intolerance Genitourinary: No Symptoms Reported. negative: Dysuria, Hematuria, Frequency, Discharge, Bleeding, Testicular Pain, Neurological: Numbness, Speech Difficulty, Weakness. negative: Dizziness, Gait Difficulty, Headache, Seizure Musculoskeletal: No Symptoms Reported. negative: Neck, Chestwall, Ribs, Back, Shoulder, Arm, Elbow, Forearm, Wrist, Hand, Pelvis, Hip, Femur, Knee, Leg, Ankle , Foot Integumentary: No Symptoms Reported. negative: Itching, Rash, Bruising, Wound Allergic/Immunologic: No Symptoms Reported. negative: Hives, Itching Hematologic: No Symptoms Reported. negative: Lymphadenopathy, Easy Bruising, Easy Bleeding Endocrine: No Symptoms Reported. negative: Weight Gain, Weight Loss Psychiatric: No Symptoms Reported. negative: Anxiety, Depression, Hallucinations, Insomnia, Suicidal - Physical Exam Constitutional: Alert (Awake), Distress (MILD) Oriented to: Time, Person, Place Last recorded Vital Signs: Oxygen Pulse Oxygen Saturation O2 Device Oxygen Flow Rate Fraction of Inspired Oxygen ( FIO2) - HEENT Head: Normal ( normocephalic) Eye Exam: Normal (PERRL, EOMI, Sclera white) Oropharynx: Normal (Pharynx:Moist without exudate,Gums-no swelling) Tympanic Membrane: Normal ENT EAC: Normal TMJ: Normal Nose: No Symptoms Reported (septum midline) Neck: Normal (FROM, trachea at midline) - Respiratory/Cardiovascular Respiratory: Normal - CTA (BBS clear to auscultation without adventitious sounds ) Cardiovascular: Normal (RRR without murmur, gallop or rub) - GI Auscultation: Normal (NABS) Palpation: Normal (Soft,No rebound or guarding, non distended) Tenderness: Non tender Lombardo's Sign: Negative - Bladder: Normal - Musculoskeletal Back: Normal (Non-Tender) - Integumentary Skin: Normal, Warm, Dry Lymphatics: Normal (no adenopathy) - Neurologic Memory Impaired: Unable to Test Motor Function: Abnormal Cranial Nerve: Deficit Cerebellar: Ataxia (RIGHT) Mood Description: Normal Perception: Normal NIH Stroke Scale Initial Evaluation Level of Consciousness: Alert LOC- Question: Answers Both Correctly LOC Commands: Both Task Correctly Best Gaze: Normal Visual: No Visual Loss Facial Palsy: Minor Paralysis (RIGHT SIDE) Motor Arm LEFT: No Drift Motor Arm RIGHT: No Drift Motor Leg LEFT: Drift Motor Leg RIGHT: No Drift Limb Ataxia: Present in One Limb (RIGHT ARM) Sensory: Mild to Mod Sensory Loss Best Language: Mild to Moderate Aphasia Dysarthria: Normal Extinction and Inattention: Partial Abnormality (Neg) Score: 6out of42 - Results 06/07/16 13:26 06/07/16 13:26 ED Critical Care Note - Critical Care Note Total Time (mins): 30 - Departure Yes I personally saw and evaluated the patient. Disposition: Admit IP To This Hospital Condition: Fair Final Diagnosis: Acute CVA (cerebrovascular accident), Right sided weakness, Dysphasia Education/Counseling Given To: Patient, Family Member Education/Counseling Given Regarding: Diagnosis, Treatment, Prognosis Referrals: Billie Jacobs HIGH SCHO[employer] MUSIC DIRECTOR [Primary Care Provider] - One Week Decision to Admit Time: 14:14 Decision to admit date: 06/07/16 Decision to admit: from ED - Physician Consulted Neurology Time Called: 13:36 Provider Called: Ben Joe (DO NOT THROMBOLIZE. GIVE PLAVIX) Time Dredge Operator Returned Call: 13:37 Hospitalist Time Called: 14:14 Provider Called: Chanelle Jin Time Dredge Operator Returned Call: 14:14
[2016-06-07 13:48] LABS: AUTOMATED BASOPHIL 0.8 % (0-2); AUTOMATED EOSINOPHIL 2.1 % (0-5); AUTOMATED LYMPH 20.4 % (17-44); AUTOMATED MONOCYTE 6.3 % (3-10); AUTOMATED NEUTROPHIL 70.4 % (45-76)
[2016-06-07 13:58] LABS: PARTIAL THROMB. TIME 25.2 SEC (22-35)
[2016-06-07 14:03] LABS: BLOOD UREA NITROGEN 22 MG/DL (9-20); CALCIUM 9.1 MG/DL (8.4-10.2); CALCULATED OSMOLALITY 272 MOs/Kg (270-290); CHLORIDE 104 mEq/L (98-107); GLUCOSE 106 MG/DL (70-99); SODIUM LEVEL 140 mEq/L (137-146)
[2016-06-07 15:41] LABS: hTSH 1.02 uIU/mL (0.5-4.67)
[2016-06-07 15:43] LABS: CRP-QUANTITATIVE 6.3 mg/L (<10.0)
--- NOTE | 2016-06-07 16:12 | HISTPHYS ---
- Chief Complaint R-sided weakness, difficulty speaking - History of Present Illness Mr. Rikki Parks is a 55 year old gentleman who was just discharged from here 2 days ago after hospitalization for a left MCA stroke. At that time he had difficulty with his speech and word groping. He appeared to be doing well at the time of discharge, but returned tonight with similar and progressive symptoms. His noted drooping of the right side of his face, slurred speech , and clumsiness of his right hand movements. She stated that initially he could not talk to her at all, then he would say some words but they didn't make any sense. As he has been in the ED, his symptoms have improved. She states he has taken his medication every day, and has not been drinking any alcohol. He does not smoke. - Medical History Cardiac History: Reports: Hypertension. Denies: Heart Attack, Pacemaker Respiratory History: Reports: No Significant History. Denies: Asthma, Pneumonia , Pulmonary Embolism GI/ History: Reports: No Significant History. Denies: Urinary Tract Infection Musculoskeletal History: Reports: Arthritis Systemic History: Denies: Anemia, Diabetes, Hypothyroidism Neurological History: Reports: Cerebrovascular Accident (TIA, MCA stroke ). Denies: Seizures Psychological History: Denies: Depression, Anxiety, Substance Use Disorder - Surgical History Reports: No Significant History. Denies: Cholecystectomy - Medictions/Allergies Allergies No Known Drug Allergies Allergy (Verified 06/07/16 13:09) Unknown Current Medication List: Reviewed Home Medications Aspirin [Mick Aspirin] 325 mg PO DAILY #30 tablet 06/06/16 Atorvastatin Calcium [Lipitor] 40 mg PO DAILY@1800 #30 tablet 06/06/16 Lisinopril [Zestril] 10 mg PO DAILY #30 tablet 06/06/16 - Family History Reports: Hypertension, Cancer (mother, brothers, sister). Denies: Diabetes - Social History Travel Outside of US in the Last 3 Months?: No Lives: with Spouse Smoking Status: Former smoker Social History: Reports: Marijuana Use. Denies: Alcohol Use (denies current use ), Substance Use Disorder - Review of Systems Constitutional: Weakness Eyes: Blurred Vision Ears: No Symptoms Reported Nose: No Symptoms Reported Mouth: Drooling, Other (difficulty speaking) Throat/Neck: No Symptoms Reported Respiratory: No Symptoms Reported Cardiovascular: No Symptoms Reported Gastrointestinal: No Symptoms Reported Genitourinary: No Symptoms Reported Neurological: Headache, Numbness (R side of face and R arm), Speech Difficulty, Weakness, Memory Changes Musculoskeletal:: Weakness (R hand/arm) Integumentary: No Symptoms Reported Allergic/Immunologic: No Symptoms Reported Hematologic: No Symptoms Reported Endocrine: No Symptoms Reported Psychiatric: No Symptoms Reported - Physical Exam Vital Signs: Initial Vitals Temperature 98.6 F 06/07/16 13:05 Pulse Rate 65 06/07/16 13:05 Respiratory Rate 18 06/07/16 13:05 Blood Pressure 126/65 06/07/16 13:05 Pulse Oxygen Saturation 95 06/07/16 13:05 Constitutional: No apparent distress, Alert, Well nourished, Well appearing Oriented to: Time, Person, Place - HEENT Head: Normal Eye: Normal (PERRL: EOMI, R eye is opened wider) Oropharynx: Drooling, Other (nasolabial flattening on right) ENT EAC: Normal Nose: No Symptoms Reported Respiratory: Normal - CTA Cardiovascular: Normal (regular rhythm and rate) - GI Auscultation: Normal Palpation: Normal Tenderness: Non tender Rectal Exam: Deferred - Musculoskeletal Back: Normal Extremities: Normal Spine: non-tender, normal alignment, normal inspection - Integumentary Skin: Warm, Dry Lymphatics: Normal - Neurologic Memory Impaired: Short-term, Other (PATIENT HAS WORD-GROPING AND DYSARTHRIA) Motor Function: Abnormal (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 COMPARED TO LEFT, BUT HAS NORMAL ACTIVE RANGE OF MOTION IN ALL 4 EXTREMITIES, SLIGHT FACIAL ASYMMETRY) Cranial Nerve: 2 (DIRECT AND CONSENSUAL VISUAL RESPONSE INTACT, EOMI), 3 (EOMI) , 4 (EOMI), 5 (SLIGHT WEAKNESS OF R LOWER HALF OF FACE, N-L FLATTENING, MASSETER MUSCLE STRENGTH IS SYMMETRICAL), 6 (EOMI), 7 (NASOLABIAL FLATTENING ON R), 8 (HEARING INTACT BILATERAL), 9 (SWALLOW/GAG RELFLEX INTACT), 10 (SWALLOW/ GAG RELFLEX INTACT), 11 (SHOULDER SHRUG INTACT), 12 (TONGUE IN MIDLINE W/O FASICULATIONS) Cerebellar: Normal (NO TREMOR, NO ATAXIA, NO NYSTAGMUS ON LATERAL GAZE) Mood Description: Anxious (CONFUSED) Thought: Other (SOME CONFUSION, ALSO SOME EXPRESSIVE APHASIA AND WORD-SALAD) DTR's TRICEPS- 2+, BICEPS- 2+, PATELLAR- 2+, ACHILLES- UNABLE TO ELICIT RESPONSE ON RIGHT, 2+ ON LEFT, NO BABINSKI REFLEX PRESENT - Focused CV Perfusion Exam Vital Signs: Last Vital Signs Temp 98.6 F 06/07/16 13:05 Pulse 60 06/07/16 14:50 Resp 18 06/07/16 14:50 BP 128/64 06/07/16 14:50 Pulse Ox 94 06/07/16 14:50 - Lab Results Laboratory Tests 06/07/16 06/07/16 06/07/16 13:26 13:26 13:26 WBC 8.0 Hgb 14.8 Hct 43.1 Plt Count 203 Neut % (Auto) 70.4 Lymph % (Auto) 20.4 Taylor % (Auto) 6.3 PT 10.7 INR 1.0 APTT 25.2 Sodium 140 Potassium 4.7 Chloride 104 Carbon Dioxide 28 Anion Gap 13 BUN 22 H Creatinine 1.00 Estimated GFR (MDRD) > 60 Glucose 106 H Calculated Osmolality 272 Calcium 9.1 Total Bilirubin 1.0 AST 34 ALT 30 Alkaline Phosphatase 59 Troponin I < 0.01 C-Reactive Prot, Quant Total Protein 7.0 Albumin 4.0 TSH 06/07/16 06/07/16 06/07/16 13:26 16:46 19:20 WBC Hgb Hct Plt Count Neut % (Auto) Lymph % (Auto) Taylor % (Auto) PT INR APTT Sodium Potassium Chloride Carbon Dioxide Anion Gap BUN Creatinine Estimated GFR (MDRD) Glucose Calculated Osmolality Calcium Total Bilirubin AST ALT Alkaline Phosphatase Troponin I < 0.01 < 0.01 C-Reactive Prot, Quant 6.3 Total Protein Albumin TSH 1.02 - Assessment (1) Acute CVA (cerebrovascular accident) I63.9 - CEREBRAL INFARCTION, UNSPECIFIED Acute Present on Admission: Yes MRI shows extension of previous infarct. Continue current medical regimen, aspirin, statin, add Plavix. Consult neurology. Patient was home less than 48 hours before he had a recurrence. TPA was not given due to risk of intracranial bleed from previous lesion (per neurology). (2) Dysphasia R47.02 - DYSPHASIA Acute EXPRESSIVE DYSPHASIA, DYSARTHRIA. Will consult speech therapy. (3) Right sided weakness M62.81 - MUSCLE WEAKNESS (GENERALIZED) Acute Present on Admission: Yes Consult physical therapy, occupational therapy to reassess patient. (4) Hyperlipidemia E78.5 - HYPERLIPIDEMIA, UNSPECIFIED Acute Present on Admission: Yes Qualifiers: Hyperlipidemia type: pure hypercholesterolemia Qualified Code(s): E78.00 - Pure hypercholesterolemia, unspecified; E78.0 - Pure hypercholesterolemia Started Lipitor- will continue with this. (5) Uncontrolled hypertension I10 - ESSENTIAL (PRIMARY) HYPERTENSION Acute Present on Admission: Yes Added BALBINA-inhibitor. Blood pressures are much improved. Case Care Discussed with: Patient, Consultants, Family Total Time: 65 min Critical Care: Yes Couseling Time (>50% in counseling/coordination): Yes Code: 291
--- NOTE | 2016-06-07 16:21 | DIRPT ---
CLINICAL DATA: New onset of right-sided weakness and facial drooping since noon today. EXAM: MRI HEAD WITHOUT AND WITH CONTRAST TECHNIQUE: Multiplanar, multiecho pulse sequences of the brain and surrounding structures were obtained without and with intravenous contrast. CONTRAST: 20 mL MultiHance COMPARISON: CT head without contrast from the same day. MRI brain 06/03/2016. FINDINGS: There is progression of the scattered left MCA territory infarcts. These involve the left lentiform nucleus and precentral gyrus. There is involvement of the posterior inferior left parietal lobe and superior left temporal. No acute hemorrhage is present. The extensive T2 changes are associated with these areas as well. Mild generalized atrophy is advanced for age. There scattered subcortical T2 hyperintensities on the right. The brainstem and cerebellum is normal. The internal auditory canals are within normal limits bilaterally. Flow is present in the major intracranial arteries. The globes and orbits are intact. Mild mucosal thickening is present in the maxillary sinuses bilaterally. There is mild mucosal thickening in the anterior ethmoid air cells and inferior frontal sinuses. The sphenoid sinuses are clear. Mastoid air cells are clear. Skullbase is within normal limits. Midline sagittal images are unremarkable. The postcontrast images demonstrate intravascular enhancement on the left corresponding with the acute/ subacute infarcts. IMPRESSION: 1. Progression of scattered acute/subacute nonhemorrhagic infarcts involving the left frontal lobe, and posterior inferior left parietal lobe, and superior left temporal lobe. There are infarcts involving the precentral gyrus and subcortical white matter. 2. Diffuse T2 changes associated with these acute/subacute infarct. 3. Moderate atrophy is advanced for age suggesting chronic microvascular changes as well. 4. Mild sinus disease as described. These results were called by telephone at the time of interpretation on 06/07/2016 at 4:[address] FRANCA FERNANDEZ MD, who verbally acknowledged these results. Electronically Signed By: Ben Quintero M.D. On: 06/07/2016 16:19
[2016-06-07] MEDS ORDERED: Vaccine Screening Complete SCH (17:00)
[2016-06-07] MEDS: ATORVASTATIN 40 MG TAB PO SCH (17:22)
--- NOTE | 2016-06-07 20:43 | PCM.NEUCO ---
Consultation Date: 06/07/16 Requesting Physician: Chanelle Jin Consulting Doctor: Melani Lazaro Reason For Consult: Stroke/TIA 55 y.o. male recently discharged on 06/06/16. He was admitted on 06/03/16 with compliant of slurred speech and expressive aphasia. 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 The MRI of his brain on did confirm left MCA territory strokes. Other evaluation included a CD, echocardiogram, and CTA over his thoracic aortic arch all which were negative for any embolic source. He was discharged on aspirin, Lisinopril, and Lipitor. Today he presented to the ED due to worsening expressive aphasia, right facial droop, and numbness in his right hand. A CT of his head done in the ED showed multiple evolving acute infarctions involving the left periventricular white matter and posterior parietal cortex. This was concerning for possible embolic phenomenon. A follow up MRI showed progression of scattered acute/subacute nonhemorrhagic infarcts involving the left frontal lobe, and posterior inferior left parietal lobe, and superior left temporal lobe. There were infarcts involving the precentral gyrus and subcortical white matter and diffuse T2 changes associated with these acute/ subacute infarct. Plavix was started on admission. Since admission earlier today patient's symptoms have significantly improved. - Past Medical and Surgical History Cardiac History: Reports: Hypertension. Denies: Heart Attack, Pacemaker Respiratory History: Denies: Asthma, Pneumonia, Pulmonary Embolism GI/ History: Denies: Urinary Tract Infection Musculoskeletal History: Reports: Arthritis Psychological History: Denies: Depression, Anxiety, Substance Use Disorder Neurological History: Denies: Seizures. Comment Only: Cerebrovascular Accident (TIA) Past Surgical History: Denies: Cholecystectomy Allergies No Known Drug Allergies Allergy (Verified 06/07/16 13:09) Unknown Home Medications Aspirin [Mick Aspirin] 325 mg PO DAILY #30 tablet 06/06/16 Atorvastatin Calcium [Lipitor] 40 mg PO DAILY@1800 #30 tablet 06/06/16 Lisinopril [Zestril] 10 mg PO DAILY #30 tablet 06/06/16 - Social History Travel Outside of [place] in the Last 3 Months?: No Lives: with Significant Other Smoking Status: Former smoker Social History: Denies: Substance Use Disorder - Family History Reports: Hypertension, Cancer (mother, brothers, sister). Denies: Diabetes - Review of Systems Constitutional: No Symptoms Reported (Denies loss of appetite) Eyes: No Symptoms Reported (Denies changes in vision) Ears: No Symptoms Reported (Denies changes in hearing) Throat/Neck: No Symptoms Reported (Denies neck pain) Cardiovascular: No Symptoms Reported (Denies chest pain) Gastrointestinal: No Symptoms Reported (Denies nausea, vomiting, and difficulty swallowing.) Genitourinary: No Symptoms Reported (Denies urinary complaints) Neurological: Headache, Speech Difficulty (expressive aphasia) Musculoskeletal:: No Symptoms Reported (Denies back pain) Psychiatric: No Symptoms Reported (Denies insomnia and depression) - Physical Exam Vital Signs: Initial Vitals Temperature 98.6 F 06/07/16 13:05 Pulse Rate 65 06/07/16 13:05 Respiratory Rate 18 06/07/16 13:05 Blood Pressure 126/65 06/07/16 13:05 Pulse Oxygen Saturation 95 06/07/16 13:05 Selected Entries 06/07/16 19:00 Temperature 97.5 F Pulse Rate 64 Respiratory 18 Rate Blood Pressure 156/65 Constitutional: No apparent distress, Alert Oriented to: Time, Person, Place - HEENT Head: Normal - Integumentary Skin: Normal - Mental Status Orientation: Time, Person, Place Speech: Clear, Other (has expressive aphasia) Coginitive: Normal Motor Function: Normal (strength 5/5 in BUE/BLE) Affect: Normal Thought: Coherent Perception: Normal - Sensory Sensory: Normal (intact to light touch and pain in all extremities) - Reflex Babinski Reflex Response: Absent Bilateral Reflexes: Normal 2+: Right Bicep, Left Bicep, Left Tricep, Right Tricep, Left Brachioradialis, Right Brachioradialis, Left Patellar, Right Patellar, Left Achilles, Right Achilles - Coordination Finger to Nose Test: Normal Performance Hand Tapping Test: Normal Performance - Other Exam Other Exam Findings: CN II - XII: Normal pupil size and reaction. Fundi not visualized. EOMI. VF full to confrontation. Hearing intact to voice. Symmetric facial sensation. Mild right lower facial droop. Normal tongue protrusion and shoulder shrug. ANNY normal in BUE. - Lab Results Laboratory Tests 06/07/16 06/07/16 06/07/16 13:26 13:26 13:26 WBC 8.0 Hgb 14.8 Hct 43.1 MCV 93 PT 10.7 INR 1.0 APTT 25.2 Sodium 140 Potassium 4.7 BUN 22 H Creatinine 1.00 Glucose 106 H TSH 06/07/16 13:26 WBC Hgb Hct MCV PT INR APTT Sodium Potassium BUN Creatinine Glucose TSH 1.02 - Diagnostic Findings EXAM: CT HEAD WITHOUT CONTRAST COMPARISON: CT scan of June 05, 2016. FINDINGS: Bony calvarium appears intact. Multiple low densities are noted in the left periventricular white matter, and left posterior parietal cortex which it increased compared to prior exam, consistent with multiple acute infarctions. This is concerning for embolic phenomenon. Minimal chronic ischemic white matter disease is noted. No hemorrhage is noted. No definite mass lesion is noted. No midline shift is noted. Ventricular size is within normal limits. IMPRESSION: Multiple evolving acute infarctions are seen involving the left periventricular white matter and posterior parietal cortex. This is concerning for possible embolic phenomenon. No hemorrhage is noted at this point. EXAM: MRI HEAD WITHOUT AND WITH CONTRAST COMPARISON: CT head without contrast from the same day. MRI brain 06/03/2016. FINDINGS: There is progression of the scattered left MCA territory infarcts. These involve the left lentiform nucleus and precentral gyrus. There is involvement of the posterior inferior left parietal lobe and superior left temporal. No acute hemorrhage is present. The extensive T2 changes are associated with these areas as well. Mild generalized atrophy is advanced for age. There scattered subcortical T2 hyperintensities on the right. The brainstem and cerebellum is normal. The internal auditory canals are within normal limits bilaterally. Flow is present in the major intracranial arteries. The globes and orbits are intact. Mild mucosal thickening is present in the maxillary sinuses bilaterally. There is mild mucosal thickening in the anterior ethmoid air cells and inferior frontal sinuses. The sphenoid sinuses are clear. Mastoid air cells are clear. Skullbase is within normal limits. Midline sagittal images are unremarkable. The postcontrast images demonstrate intravascular enhancement on the left corresponding with the acute/ subacute infarcts. IMPRESSION: 1. Progression of scattered acute/subacute nonhemorrhagic infarcts involving the left frontal lobe, and posterior inferior left parietal lobe, and superior left temporal lobe. There are infarcts involving the precentral gyrus and subcortical white matter. 2. Diffuse T2 changes associated with these acute/subacute infarct. 3. Moderate atrophy is advanced for age suggesting chronic microvascular changes as well. 4. Mild sinus disease as described. - Assessment/Plan (1) CVA (cerebral vascular accident) I63.9 - CEREBRAL INFARCTION, UNSPECIFIED Acute middle cerebral artery left Comment: The MRI of patient's brain showed progression of scattered acute/subacute nonhemorrhagic infarcts involving the left frontal lobe, and posterior inferior left parietal lobe, and superior left temporal lobe. Will order brain MRA per previous recommendation by radiology to further assess the status of the LEFT MCA given the pattern infarction. Agree with Plavix and will add [address] Case Care Discussed with: Other (Dr. Finn, neurologist content developer.)
[2016-06-07] MEDS: CHLORHEXIDINE (HIBICLENS) 4 OZ BOTTLE TOP SCH (22:41)
[2016-06-08 06:23] LABS: LDL (calc.) 110.8 MG/DL (<100); VLDL (calc.) 18.2 MG/DL (5-40)
[2016-06-08] MEDS: CLOPIDOGREL 75 MG TAB PO SCH (07:18)
[2016-06-08] MEDS ORDERED: ASPIRIN 325 MG TAB PO SCH (09:00)
[2016-06-08 10:33] VITALS: TEMP 27.6
--- NOTE | 2016-06-08 10:47 | DIRPT ---
CLINICAL DATA: Progressive left-sided CVA. Right arm weakness and facial drooping. EXAM: MRA HEAD WITHOUT CONTRAST TECHNIQUE: Angiographic images of the [place] were obtained using MRA technique without intravenous contrast. COMPARISON: MRI brain 06/07/2016 FINDINGS: The internal carotid arteries are within normal limits from the high cervical segments through the ICA termini bilaterally. The A1 segments are normal bilaterally. The right M1 segment is normal. There is some tapering of the distal left M1 segment. A high-grade, near occlusive stenosis is present just beyond the bifurcation in the inferior left M2 division. There is a moderate stenosis in the superior left M2 division. The left vertebral artery is the dominant vessel. The right PICA origin is visualized and normal. A prominent right AICA is present. The left PICA is not visualized. The basilar artery is normal. Both posterior cerebral arteries originate from the basilar tip. There is moderate narrowing in the superior right P3 segment. Mild distal small vessel disease is present bilaterally. IMPRESSION: 1. High-grade, near occlusive, stenosis of the inferior left M2 division, just beyond the left MCA bifurcation. 2. Moderate stenosis of the superior left M2 division, just be on the left MCA bifurcation. 3. No significant proximal M1 stenosis. 4. Moderate right P3 stenosis. 5. Mild diffuse distal small vessel disease. Electronically Signed By: Ben Quintero M.D. On: 06/08/2016 10:44
--- NOTE | 2016-06-08 13:31 | GENMEDPROG ---
Chief Complaint: S/P CVA, now w/ abnormal MRA of head, word-groping, weakness R side of face & arm - Physical Examination Vital Signs and I&O: Last Vital Signs Temp 98.1 F 06/08/16 12:00 Pulse 58 L 06/08/16 12:00 Resp 20 06/08/16 12:00 BP 132/69 06/08/16 12:00 Pulse Ox 98 06/08/16 12:00 Oxygen Pulse Oxygen Saturation 98 O2 Device Room Air Oxygen Flow Rate Fraction of Inspired Oxygen ( FIO2) Intake & Output 06/05/16 06/06/16 06/07/16 06/08/16 23:59 23:59 23:59 23:59 Intake Total 805 480 Output Total 450 1350 Balance 355 -870 Patient's weight 97.432 kg Lymphatics: Normal Respiratory: Normal - CTA Lab/DI/Studies Reviewed: MRA Head: IMPRESSION: 1. High-grade, near occlusive, stenosis of the inferior left M2 division, just beyond the left MCA bifurcation. 2. Moderate stenosis of the superior left M2 division, just be on the left MCA bifurcation. 3. No significant proximal M1 stenosis. 4. Moderate right P3 stenosis. 5. Mild diffuse distal small vessel disease. Electronically Signed By: Ben Quintero M.D. On: 06/08/2016 10:44 - Assessment (1) Acute CVA (cerebrovascular accident) Acute I63.9 - CEREBRAL INFARCTION, UNSPECIFIED Comment/Plan: MRI shows extension of previous infarct. Continue current medical regimen, aspirin, statin, added Plavix. Has high grade lesion in L MCA just above the bifurcation. Consulted neurology. Patient was home less than 48 hours before he had a recurrence. TPA was not given due to risk of intracranial bleed from previous lesion (per neurology). Have called [facility] to discuss w/ their Interventional Neurologist. [facility] - Dr. Moscoso discussed case with me. He states that it sounds like the lesion is amenable to stenting; he will accept the patient in transfer for evaluation tomorrow. (2) Dysphasia Acute R47.02 - DYSPHASIA Comment/Plan: EXPRESSIVE DYSPHASIA, DYSARTHRIA. Will consult speech therapy. (3) Right sided weakness Acute M62.81 - MUSCLE WEAKNESS (GENERALIZED) Comment/Plan: Consult physical therapy, occupational therapy to reassess patient. (4) Hyperlipidemia Acute E78.5 - HYPERLIPIDEMIA, UNSPECIFIED Qualifiers: Hyperlipidemia type: pure hypercholesterolemia Qualified Code(s): E78.00 - Pure hypercholesterolemia, unspecified; E78.0 - Pure hypercholesterolemia Comment/Plan: Started Lipitor- will continue with this. (5) Uncontrolled hypertension Acute I10 - ESSENTIAL (PRIMARY) HYPERTENSION Comment/Plan: Added BALBINA- inhibitor. Blood pressures are much improved. - Plan Patient needs intravascular stent. Discussed with Dr. Carlos [facility]cos[facility] of [facility]. He will accept the patient in transfer tomorrow (06/09/16) for evaluation for neurointerventional procedure. Patient will be kept NPO past midnight. Additional Notes: Will arrange transfer through [facility]. They are aware. Case Care Discussed with: Patient, Consultants, Family, Nursing Staff Education/Counseling Given To: Patient, Family Member Education/Counseling Given Regarding: Diagnosis, Treatment, Prognosis Total Time: 70 min Critical Care: Yes Couseling Time (>50% in counseling/coordination): Yes Code: 291
[2016-06-08] MEDS: ATORVASTATIN 40 MG TAB PO SCH (17:08)
--- NOTE | 2016-06-08 19:45 | PCM.NEUPN ---
- Physical Exam Vital Signs: Initial Vitals Temperature 98.6 F 06/07/16 13:05 Pulse Rate 65 06/07/16 13:05 Respiratory Rate 18 06/07/16 13:05 Blood Pressure 126/65 06/07/16 13:05 Pulse Oxygen Saturation 95 06/07/16 13:05 Constitutional: No apparent distress, Alert - Mental Status Orientation: Time, Person, Place Speech: Dysarthria (moderate), Blocking (moderate) Coginitive: Normal, Follows Commands Motor Function: Abnormal ( very mild right sided weakness) Affect: Normal Thought: Coherent Perception: Normal - Sensory Sensory: Normal - Diagnostic Findings MRA HEAD WITHOUT CONTRAST TECHNIQUE: Angiographic images of the [place] were obtained using MRA technique without intravenous contrast. COMPARISON: MRI brain 06/07/2016 FINDINGS: The internal carotid arteries are within normal limits from the high cervical segments through the ICA termini bilaterally. The A1 segments are normal bilaterally. The right M1 segment is normal. There is some tapering of the distal left M1 segment. A high-grade, near occlusive stenosis is present just beyond the bifurcation in the inferior left M2 division. There is a moderate stenosis in the superior left M2 division. The left vertebral artery is the dominant vessel. The right PICA origin is visualized and normal. A prominent right AICA is present. The left PICA is not visualized. The basilar artery is normal. Both posterior cerebral arteries originate from the basilar tip. There is moderate narrowing in the superior right P3 segment. Mild distal small vessel disease is present bilaterally. IMPRESSION: 1. High-grade, near occlusive, stenosis of the inferior left M2 division, just beyond the left MCA bifurcation. 2. Moderate stenosis of the superior left M2 division, just be on the left MCA bifurcation. 3. No significant proximal M1 stenosis. 4. Moderate right P3 stenosis. 5. Mild diffuse distal small vessel disease. - Assessment/Plan (1) CVA (cerebral vascular accident) I63.9 - CEREBRAL INFARCTION, UNSPECIFIED Acute middle cerebral artery left Comment: 55 yom with left hemispheric strokes and fluctuating, progressive course. MRA showed near occlusion of left MCA2 division. He is scheduled to be evaluated by Dr. Kaufman at in the morning with possible stenting. We discussed stroke mechanisms in general and I encouraged him to make sure he understands the risks of doing the procedure versus the risk of not doing the procedure when he talks with Dr. Kaufman. Continue his current care for now. Case Care Discussed with: Patient, Family, Nursing Staff Plan: 1. Continue plavix and aspirin. 2. Transfer to for evaluation for possible cerebral stenting.
--- NOTE | 2016-06-08 21:17 | PCM.DCS92 ---
- Final/Secondary Discharge Diagnosis (1) Acute CVA (cerebrovascular accident) Acute I63.9 - CEREBRAL INFARCTION, UNSPECIFIED Present on Admission: Yes Comment: MRI shows extension of previous infarct. Continue current medical regimen, aspirin, statin, added Plavix. Has high grade lesion in L MCA just above the bifurcation. Consulted neurology. Patient was home less than 48 hours before he had a recurrence. TPA was not given due to risk of intracranial bleed from previous lesion (per neurology). [facility] to discuss w/ their Interventional Neurologist. [facility], [facility] - Dr. Carbajal discussed case with me. He states that it sounds like the lesion is amenable to stenting; he will accept the patient in transfer for evaluation tomorrow. (2) Dysphasia Acute R47.02 - DYSPHASIA Present on Admission: Yes Comment: EXPRESSIVE DYSPHASIA, DYSARTHRIA. Will consult speech therapy. Plan/Goal/Comment: Word groping has largely resolved and patient is again completely free of symptoms, which was the case when he was discharged on Jun 03, 2016. (3) Right sided weakness Acute M62.81 - MUSCLE WEAKNESS (GENERALIZED) Present on Admission: Yes Comment: At this time all of his deficits have resolved, as they did prior to his last discharge. (4) Hyperlipidemia Acute E78.5 - HYPERLIPIDEMIA, UNSPECIFIED Present on Admission: Yes pure hypercholesterolemia E78.00 - Pure hypercholesterolemia, unspecified; E78.0 - Pure hypercholesterolemia Comment: Started Lipitor- will continue with this. (5) Uncontrolled hypertension Acute I10 - ESSENTIAL (PRIMARY) HYPERTENSION Present on Admission: Yes Comment: Added BALBINA-inhibitor. Blood pressures are much improved. Discharge Disposition: Trans. to Other Hospital Discharge Condition: Improved Cognitive Discharge Status: Unimpaired Fuctional Discharge Status: Inability to drive due to severe medical illness Physician Follow up/Referrals: Billie Jacobs NP [Primary Care Provider] - One Week Esequiel Carbajal MD [Staff Physician] - 06/09/16 8:00 am O2 Device: Room Air Additional Instructions: KEEP PATIENT NPO FOR POSSIBLE PROCEDURE; TRANSFER WITH IV IN PLACE. Call Office For: Worsening Symptoms - DC Summary Notes Hospital Course Note:: Discharge summary on patient named RIKKI MAC JR admitted to [facility] on 06/07/16 by Chanelle Jin MD. Date of discharge is [06/09/16]. Mr. Rikki Mac is a 55 year old gentleman who was just discharged from here 2 days ago after hospitalization for a left MCA stroke. At that time he had difficulty with his speech and word groping. He appeared to be doing well at the time of discharge, but returned on the day of admission with similar and progressive symptoms. His noted drooping of the right side of his face, slurred speech, and clumsiness of his right hand movements. She stated that initially he could not talk to her at all, then he would say some words but they didn't make any sense. As he has been in the ED, his symptoms have improved. She states he has taken his medication every day, and has not been drinking any alcohol. He does not smoke. The patient was re-admitted, placed on a stroke protocol. His MRI shows extension of previous infarct. Continue current medical regimen, aspirin, statin, added Plavix. His MRA has a high grade lesion in L MCA just above the bifurcation. Consulted neurology. Patient was home less than 48 hours before he had a recurrence. TPA was not given due to risk of intracranial bleed from previous lesion (per neurology). Have called [facility] to discuss w/ their Interventional Neurologist. [facility], [facility] - Dr. Carbajal discussed case with me. He states that it sounds like the lesion is amenable to stenting; he will accept the patient in transfer for evaluation on 06/09/16. The patient will be transferred by ambulance. Code: 291 (To be discharged when [facility] arrives for the patient in the morning 06/09/16.) - Physical Exam Vital Signs: Last Vital Signs Temp 98.1 F 06/08/16 12:00 Pulse 67 06/08/16 20:35 Resp 18 06/08/16 16:00 BP 163/81 06/08/16 16:00 Pulse Ox 96 06/08/16 16:00 Oxygen Pulse Oxygen Saturation 96 O2 Device Room Air Oxygen Flow Rate Fraction of Inspired Oxygen ( FIO2) Constitutional: No apparent distress, Alert Oriented to: Time, Person, Place - HEENT Head: Normal Eye: Normal (PERRL: EOMI, R eye is opened wider) Oropharynx: Normal, Other (mild nasolabial flattening on right) Tympanic Membrane: Normal ENT EAC: Normal Nose: No Symptoms Reported - Respiratory/Cardiovascular Respiratory: Normal - CTA Cardiovascular: Normal (regular rhythm and rate) - GI Auscultation: Normal Palpation: Normal Tenderness: Non tender Rectal Exam: Deferred - Musculoskeletal Back: Normal Extremities: Normal - Integumentary Skin: Warm, Dry Lymphatics: Normal - Neurologic Memory Impaired: Normal Motor Function: Normal Cranial Nerve: Normal Cerebellar: Normal Mood Description: Normal Thought: Coherent Perception: Normal
[2016-06-08] MEDS: CHLORHEXIDINE (HIBICLENS) 4 OZ BOTTLE TOP SCH (21:54)
[2016-06-09 04:52] VITALS: BMI 27.1
[2016-06-09] MEDS: CLOPIDOGREL 75 MG TAB PO SCH (07:39)
--- NOTE | 2016-06-09 08:14 | GENMEDPROG ---
Chief Complaint: No complaints this morning. He is anxious for transfer Subjective Note: Denies headache chest pain shortness of breath. Current Medication List: Reviewed Currently: Reports: Cough (Dry cough since admission no change.). Denies: Wheezing, SOB, Nausea and Vomiting, Fever/Chills - Physical Examination Vital Signs and I&O: Last Vital Signs Temp 98.1 F 06/09/16 04:00 Pulse 61 06/09/16 07:40 Resp 18 06/09/16 04:00 BP 153/93 06/09/16 04:00 Pulse Ox 96 06/09/16 04:00 Oxygen Pulse Oxygen Saturation 96 O2 Device Room Air Oxygen Flow Rate Fraction of Inspired Oxygen ( FIO2) Intake & Output 06/06/16 06/07/16 06/08/16 06/09/16 23:59 23:59 23:59 23:59 Intake Total 805 720 Output Total 450 1950 Balance 355 -1230 Patient's weight 97.432 kg 96.116 kg General: Alert, Oriented x3, No acute distress Neck: Full range of motion Respiratory: Normal - CTA Cardiovascular: Regular rate and rhythm, No Gallops,Rubs/Murmurs, Good Pedal Pulses GI: Soft, Non tender Extremities/Musculoskeletal: Normal pulses Skin: Warm,Dry and Intact Neurological: Normal speech Psych/Mental Status: Appropriate, Anxious (Slightly tearful at times) - Assessment (1) Acute CVA (cerebrovascular accident) Acute I63.9 - CEREBRAL INFARCTION, UNSPECIFIED Comment/Plan: MRI shows extension of previous infarct. Continue current medical regimen, aspirin, statin, added Plavix. Has high grade lesion in L MCA just above the bifurcation. Consulted neurology. Patient was home less than 48 hours before he had a recurrence. TPA was not given due to risk of intracranial bleed from previous lesion (per neurology). Have [facility] to discuss w/ their Interventional Neurologist. [facility], [facility] - Dr. Carbajal discussed case with me. He states that it sounds like the lesion is amenable to stenting; he will accept the patient in transfer for evaluation tomorrow. (2) Dysphasia Acute R47.02 - DYSPHASIA Comment/Plan: EXPRESSIVE DYSPHASIA, DYSARTHRIA. Will consult speech therapy. (3) Right sided weakness Acute M62.81 - MUSCLE WEAKNESS (GENERALIZED) Comment/Plan: At this time all of his deficits have resolved, as they did prior to his last discharge. - Plan Patient is stable for discharge. Dr. Waggoner has done the discharge summary. No new issues overnight. Transfer forms have been signed and reviewed with patient. Case Care Discussed with: Patient, Family, Nursing Staff Education/Counseling Given To: Patient, Family Member Education/Counseling Given Regarding: Diagnosis, Treatment Total Time: 20 minutes Critical Care: No Couseling Time (>50% in counseling/coordination): Yes Code: 60199 (6-11)
[2016-06-09 08:35] VITALS: BP 171/88; PULSE 63; TEMP 98.3
== END 2016-06-09 08:25 | disposition home or self-care (01) | DRG 65 ==
LOC: ED 12:36 → ICU 14:41
PROVIDERS: ADMIT Family Medicine; ATTEND Family Medicine
DX: I63.9 Cerebral infarction, unspecified (principal); G81.91 Hemiplegia, unspecified affecting right dominant side; I10 Essential (primary) hypertension; E78.5 Hyperlipidemia, unspecified; E78.00 Pure hypercholesterolemia, unspecified; R29.810 Facial weakness; M19.90 Unspecified osteoarthritis, unspecified site; Z79.82 Long term (current) use of aspirin; Z79.899 Other long term (current) drug therapy; Z87.891 Personal history of nicotine dependence; F12.90 Cannabis use, unspecified, uncomplicated; R47.02 Dysphasia; R29.706 NIHSS score 6
CPT/HCPCS: 36415; 70450; 70544; 70553; 71010; 80053; 80061; 83090; 84443; 84484; 85025; 85610; 85651; 85730; 86038; 86140; 86592; 87641; 93005; 97162; 97165; 99285; A9577; J3490